=== PATIENT | male | born 1935 | race Caucasian/White ===

== ENCOUNTER 2017-05-04 17:27 | Emergency (ER) | payer OTHER ==
[~2017-05-04] VITALS: Ht 182.9 cm; Wt 103.1 kg
[2017-05-04 17:29] VITALS: TEMP 36.7; Ht 182.9 cm; Wt 103.1 kg
[2017-05-04] MEDS ORDERED: MoRPHine SULFATE 4 MG/ML 1 ML CARP\\VIAL IV STA (17:38)
[2017-05-04] MEDS ORDERED: ONDANSETRON INJ 2 MG/ML 2 ML VIAL IV STA (17:38)
[2017-05-04 17:51] LABS: BASO % 0.4 %; BASO ABS # 0.03 K/uL (0-0.2); COMPLETE YES; EOS % 3.4 %; HEMATOCRIT 43.4 % (42-52); IG% 0.7 %; LYMPH % 16.6 %; LYMPH ABS # 1.24 K/uL (1.2-3.4); MEAN CELL VOLUME 91.6 fL (80-100); MEAN CORPUSCULAR HEMOGLOBIN 30.4 pg (25-34); MEAN CORPUSCULAR HGB CONC 33.2 g/dl (32-36); MONO % 11.1 %; NEUT % 67.8 %; PLATELET COUNT 223 K/uL (130-400); RED BLOOD COUNT 4.74 M/uL (4.7-6.1); WHITE BLOOD COUNT 7.46 K/uL (4.8-10.8)
[2017-05-04 18:08] LABS: BUN/CREATININE RATIO 22.5 (10-20); CALCIUM 9.5 mg/dl (8.5-10.1); CREATININE 1.2 mg/dl (0.60-1.40); POTASSIUM 4.2 mmol/L (3.5-5.1)
[2017-05-04] MEDS ORDERED: ASPI81TA28 PO (18:10)
[2017-05-04] MEDS ORDERED: MULT-506 PO (18:10)
[2017-05-04] MEDS ORDERED: MISCCAP55 PO (18:10)
[2017-05-04] MEDS ORDERED: CYNI1000 INJ (18:10)
[2017-05-04] MEDS ORDERED: CARV12.52 PO (18:10)
[2017-05-04] MEDS ORDERED: CLX20 PO (18:10)
[2017-05-04] MEDS ORDERED: TERA5CAP PO (18:10)
[2017-05-04] MEDS ORDERED: GLC/500 PO (18:10)
[2017-05-04] MEDS ORDERED: CHOL1000 PO (18:10)
[2017-05-04] MEDS ORDERED: GLUC15002 PO (18:10)
[2017-05-04] MEDS ORDERED: CZR50 PO (18:10)
[2017-05-04] MEDS ORDERED: TRIATAB3 PO (18:10)
--- NOTE | 2017-05-04 18:30 | DIAGNOSTIC IMAGING REPORT ---
LEFT RIBS UNILATERAL WITH PA CHEST CLINICAL HISTORY: Left rib pain status post trauma COMPARISON STUDY: No previous studies for comparison. FINDINGS: The erect chest reveals no pneumothorax. There is no focal pulmonary consolidation. There is right hilar enlargement, possibly secondary to an enlarged pulmonary artery suggesting pulmonary hypertension There are fractures of the left fifth and sixth ribs. IMPRESSION: 1. Acute Left fifth and sixth posterior lateral rib fractures 2. No evidence of pneumothorax. 3. Right hilar enlargement. Electronically signed by: Diallo Dempsey M.D. 05/04/2017 6:28 PM Dictated Date/Time: 05/04/2017 6:26 PM
[2017-05-04] MEDS ORDERED: OXYC1TAB3 PO (18:50)
[2017-05-04 19:00] VITALS: BP 158/85; PULSE 67; O2SAT 97
[2017-05-04] MEDS ORDERED: OXYCODONE IR HOME PACK PO ONE (19:00)
--- NOTE | 2017-05-04 19:32 | EMERGENCY ROOM VISIT NOTE ---
History Report prepared by Jackson: Dylon Tellez Under the Supervision of: Dr. Geovani Robles M.D. First contact with patient: 17:33 Chief Complaint: RIB PAIN Stated Complaint: FELL, RIB PAIN History of Present Illness The patient is a 81 year old male who presents to the Emergency Room with complaints of constant left rib pain that started two hours ago. He rates his pain as a 7/10 in severity. The patient states that he fell two feet off of his porch and landed on his right arm. He reports that his left arm hit his left ribs causing him pain. The patient states that he fell because he tripped and there was no railing. He reports that since the incident he has been experiencing shortness of breath. The patient admits he takes medication for his blood pressure but denies any allergies. The patient denies hitting his head , hip injury, abdominal pain, a headache, LOC, and lightheadedness. He had no symptoms prior to the fall. Source of History: patient Onset: two hours ago Position: other (left rib) Symptom Intensity: 7/10 Quality: sharp Timing: constant Associated Symptoms: + SOB, No LOC, No headache, No abdominal pain Review of Systems See HPI for pertinent positives & negatives. A total of 10 systems reviewed and were otherwise negative. Past Medical & Surgical Medical Problems: (1) Diabetes (2) Heart disease (3) Hypertension Surgical Problems: (1) H/O hernia repair (2) H/O left knee surgery (3) History of back surgery Family History Cancer Diabetes mellitus Heart disease Hypertension Social History Smoking Status: Former Smoker Alcohol Use: none Drug Use: none Marital Status: Housing Status: lives with significant other Occupation Status: retired Current/Historical Medications Scheduled Aspirin (Aspirin Ec), 81 MG PO DAILY Carvedilol (Coreg), 12.5 MG PO DAILY Cholecalciferol (Vitamin D3), 1,000 INTER.UNIT PO DAILY Citalopram (Citalopram Hydrobromide), 20 MG PO DAILY Cyanocobalamin (Cyanocobalamin), 1 DOSE INJ MONTHLY Ycgtljejofu-Akkvyyohuro-Gak C- (Glucosamine 1500 Complex), 2 CAP PO DAILY Losartan Potassium (Losartan Potassium), 50 MG PO DAILY Metformin Hcl (Glucophage), 500 MG PO BID Misc Natural Products (Dandelion Root), 520 MG PO DAILY Multivitamin (Multivitamin), 1 TAB PO DAILY Terazosin (Hytrin), 5 MG PO DAILY Triamterene/Hctz (Triamterene/Hctz 37.5-25MG), 1 TAB PO DAILY Scheduled PRN Oxycodone Ir (Roxicodone Ir), 5 MG PO Q4H PRN for Pain Allergies Coded Allergies: No Known Allergies (Unverified , 05/04/17) Physical Exam Vital Signs Date Time Temp Pulse Resp B/P (MAP) Pulse Ox O2 Delivery O2 Flow Rate FiO2 05/04/17 19:00 67 18 158/85 97 05/04/17 17:43 71 05/04/17 17:29 36.7 77 18 188/97 97 Physical Exam Constitutional: Vital signs reviewed. Eyes: Pupils are equal round reactive to light. Conjunctiva are noninjected. ENT: Pharynx is clear without erythema or exudate. Mucous membranes are moist. Neck supple without meningeal signs. Respiratory: Clear to auscultation bilaterally. Breath sounds are equal bilaterally. Cardiovascular: Regular rate and rhythm. No rubs or gallops. GI: Soft, nondistended and nontender. Bowel sounds are present. Musculoskeletal: No midline tenderness to cervical spine. Left rib tenderness without crepitus or flail segment. No hip or upper or lower extremity tenderness. Integumentary: No cyanosis. Neurological: The patient is awake and alert. No focal deficits. Psychiatric: Normal affect. Medical Decision & Procedures ER Provider Diagnostic Interpretation: X-ray results as stated below per interpretation by me and the radiologist: LEFT RIBS UNILATERAL WITH PA CHEST CLINICAL HISTORY: Left rib pain status post trauma COMPARISON STUDY: No previous studies for comparison. FINDINGS: The erect chest reveals no pneumothorax. There is no focal pulmonary consolidation. There is right hilar enlargement, possibly secondary to an enlarged pulmonary artery suggesting pulmonary hypertension There are fractures of the left fifth and sixth ribs. IMPRESSION: 1. Acute Left fifth and sixth posterior lateral rib fractures 2. No evidence of pneumothorax. 3. Right hilar enlargement. Electronically signed by: Diallo Dempsey M.D. 05/04/2017 6:28 PM Dictated Date/Time: 05/04/2017 6:26 PM Laboratory Results 05/04/17 17:41 Red Blood Count 4.74, Mean Corpuscular Volume 91.6, Mean Corpuscular Hemoglobin 30.4, Mean Corpuscular Hemoglobin Concent 33.2, Mean Platelet Volume 10.0, Neutrophils (%) (Auto) 67.8, Lymphocytes (%) (Auto) 16.6, Monocytes (%) (Auto) 11.1, Eosinophils (%) (Auto) 3.4, Basophils (%) (Auto) 0.4, Neutrophils # (Auto ) 5.06, Lymphocytes # (Auto) 1.24, Monocytes # (Auto) 0.83, Eosinophils # (Auto ) 0.25, Basophils # (Auto) 0.03 05/04/17 17:41 Test 05/04/17 17:41 White Blood Count 7.46 K/uL (4.8-10.8) Red Blood Count 4.74 M/uL (4.7-6.1) Hemoglobin 14.4 g/dL (14.0-18.0) Hematocrit 43.4 % (42-52) Mean Corpuscular Volume 91.6 fL (80-100) Mean Corpuscular Hemoglobin 30.4 pg (25-34) Mean Corpuscular Hemoglobin Concent 33.2 g/dl (32-36) Platelet Count 223 K/uL (130-400) Mean Platelet Volume 10.0 fL (7.4-10.4) Neutrophils (%) (Auto) 67.8 % Lymphocytes (%) (Auto) 16.6 % Monocytes (%) (Auto) 11.1 % Eosinophils (%) (Auto) 3.4 % Basophils (%) (Auto) 0.4 % Neutrophils # (Auto) 5.06 K/uL (1.4-6.5) Lymphocytes # (Auto) 1.24 K/uL (1.2-3.4) Monocytes # (Auto) 0.83 K/uL (0.11-0.59) Eosinophils # (Auto) 0.25 K/uL (0-0.5) Basophils # (Auto) 0.03 K/uL (0-0.2) RDW Standard Deviation 45.8 fL (36.4-46.3) RDW Coefficient of Variation 13.8 % (11.5-14.5) Immature Granulocyte % (Auto) 0.7 % Immature Granulocyte # (Auto) 0.05 K/uL (0.00-0.02) Anion Gap 9.0 mmol/L (3-11) Est Creatinine Clear Calc Drug Dose 60.0 ml/min Estimated GFR () 65.3 Estimated GFR (Non- 56.4 BUN/Creatinine Ratio 22.5 (10-20) Calcium Level 9.5 mg/dl (8.5-10.1) Laboratory results as reviewed by me. Medications Administered Medications (Trade) Dose Ordered Sig/Kristen Route Start Time Stop Time Status Last Admin Dose Admin Morphine Sulfate (MoRPHine SULFATE INJ) 4 mg NOW STAT IV 05/04/17 17:38 05/04/17 17:40 DC 05/04/17 17:52 4 MG Ondansetron HCl (Zofran Inj) 4 mg NOW STAT IV 05/04/17 17:38 05/04/17 17:40 DC 05/04/17 17:52 4 MG Oxycodone HCl (Roxicodone Immediate Rel 5MG Home Pack) 1 homepack UD ONCE PO 05/04/17 19:00 05/04/17 19:01 DC 05/04/17 18:52 1 HOMEPACK ED Course 1733: The patient was evaluated in room B09. A complete history and physical exam was performed. 1738: Ordered Zofran Injection 4 mg IV, Morphine Sulfate 4 mg IV. 1843: I reevaluated the patient and discussed his results. I told him bout the precautions regarding his pain, pain medication, and driving restrictions. The patient was discharged home. 1899: Ordered Oxycodone HCL 1 homepack PO. Medical Decision This is an 81-year-old male who presents with left-sided rib pain. Differential diagnosis includes contusion, rib fracture, pneumothorax, flail segment. I did perform a limited focused review of portions of the patient's old chart on the electronic medical record. The patient has had no recent pertinent visits to this hospital. I did evaluate the patient as noted above. The patient presents after a mechanical fall and hurting his left ribs. He denies any other injury. He denies any head or neck injury or hip injury. IV access was established. I did treat the patient with IV morphine and Zofran. I did order and personally review the patient's rib and chest x-rays as described above. He does have factors to the fifth and sixth rib posteriorly. No pneumothorax. I did order and review the patient's blood work as noted in the electronic medical record. I did discuss the test results with the patient. He is feeling better. I did discuss pain medications with him. He states he is driving to [place] on Saturday. I did recommend his drive because if he has an acute episode of pain he could cause a motor vehicle accident. I did discharge the patient with a prescription for OxyIR. [place] Drug Monitoring Program Search Results: patient reviewed within database, no issues identified Medication Reconcilliation Current Medication List: was personally reviewed by me Blood Pressure Screening Patient's blood pressure: Elevated blood pressure Impression Primary Impression: Left rib fracture Scribe Attestation The scribe's documentation has been prepared under my direct and personally reviewed by me in its entirety. I confirm that the note above accurately reflects all work, treatment, procedures, and medical decision making performed by me. Departure Information Dispostion Home / Self-Care Prescriptions Oxycodone Ir (Roxicodone Ir) 5 Mg Tab 5 MG PO Q4H Y for Pain, #20 TAB Prov: Geovani Robles M.D. 05/04/17 Forms HOME CARE DOCUMENTATION FORM, IMPORTANT VISIT INFORMATION, WORK / SCHOOL INSTRUCTIONS Patient Instructions ED Fx Rib, My [facility] Additional Instructions You have been examined and treated today on an emergency basis only. This is not a substitute for, or an effort to provide, complete comprehensive medical care. It is impossible to recognize and treat all injuries or illnesses in a single emergency department visit. It is therefore important that you follow up closely with your physician. Call as soon as possible for an appointment. Return for worsening symptoms or if you develop fever, vomiting, sudden shortness of breath or any other concerning symptoms. Problem Qualifiers Primary Impression: Left rib fracture Encounter type: initial encounter Rib fracture type: multiple ribs Fracture type: closed Qualified Codes: S22.42XA - Multiple fractures of ribs , left side, initial encounter for closed fracture
== END 2017-05-04 19:01 | disposition home or self-care (01) ==
LOC: C.EDB 17:27
DX: S22.42XA Multiple fractures of ribs, left side, initial encounter for closed fracture (principal); W17.89XA Other fall from one level to another, initial encounter; E11.9 Type 2 diabetes mellitus without complications; I10 Essential (primary) hypertension; Z80.9 Family history of malignant neoplasm, unspecified; Z83.3 Family history of diabetes mellitus; Z82.49 Family history of ischemic heart disease and other diseases of the circulatory system; Z87.891 Personal history of nicotine dependence; Z79.82 Long term (current) use of aspirin; Z79.899 Other long term (current) drug therapy

== ENCOUNTER 2019-04-01 12:33 | Observation (INO) ==
[2019-04-01 13:05] LABS: Basophils # (auto) 0.03 K/uL (0-0.2); Basophils % (auto) 0.5 %; Eosinophils % (auto) 3.1 %; Hematocrit (blood only) 41.2 % (42-52); Hemoglobin 14.3 g/dL (14.0-18.0); Immature Granulocytes # (auto) 0.09 K/uL (0.00-0.02); Immature Granulocytes % (auto) 1.4 %; Lymphocytes # (auto) 1.24 K/uL (1.2-3.4); Lymphocytes % (auto) 19.3 %; Mean Corpuscular Hgb Conc 34.7 g/dL (32-36); Mean Corpuscular Volume 91.4 fL (80-100); Mean Platelet Volume 10.1 fL (7.4-10.4); Monocytes # (auto) 0.66 K/uL (0.11-0.59); Monocytes % (auto) 10.3 %; Neutrophils # (auto) 4.21 K/uL (1.4-6.5); Neutrophils % (auto) 65.4 %; Platelet Count 242 K/uL (130-400); RDW Coefficient of Variation 14.7 % (11.5-14.5); RDW Standard Deviation 48.9 fL (36.4-46.3); Red Blood Count 4.51 M/uL (4.7-6.1); White Blood Count 6.43 K/uL (4.8-10.8)
[2019-04-01] MEDS: NITROGLYCERIN SL 0.4 MG/TAB TAB SL PRN ×2 (13:09→13:38)
[2019-04-01] MEDS ORDERED: ONDANSETRON INJ 2 MG/ML 2 ML VIAL IV STA (13:14)
[2019-04-01] MEDS ORDERED: SODIUM CHLORIDE 0.9% 1000ML 1,000 ML IV SCH (13:15)
[2019-04-01 13:20] LABS: Partial Thromboplastin Ratio 0.9; Partial Thromboplastin Time 23.4 Seconds (21.0-31.0); Prothrombin Time 10.4 Seconds (9.0-12.0)
[2019-04-01 13:21] LABS: Alanine Aminotransferase 30 U/L (12-78); Aspartate Aminotransferase 25 U/L (15-37); BUN Creatinine Ratio 20.9 (10-20); Bilirubin Direct 0.2 mg/dl (0-0.2); Blood Urea Nitrogen 35 mg/dl (7-18); Carbon Dioxide 26 mmol/L (21-32); Chloride 104 mmol/L (98-107); Creatinine Clr Calc Pharmacy 40.2 ml/min; Est GFR (African American) 42.6; Est GFR (Non-African American) 36.7; Glucose 126 mg/dl (70-99); Potassium 3.9 mmol/L (3.5-5.1); Sodium 139 mmol/L (136-145)
[2019-04-01 13:26] LABS: Albumin Globulin Ratio 1.1 (0.9-2); Alkaline Phosphatase 53 U/L (45-117); Bilirubin,Total 0.7 mg/dl (0.2-1); Globulin 3.7 gm/dl (2.5-4.0); Total Protein 7.7 gm/dl (6.4-8.2); Troponin I < 0.015 ng/ml (0-0.045)
--- NOTE | 2019-04-01 13:38 | XRay Report ---
XR chest 1V portable CLINICAL HISTORY: Atypical chest pain COMPARISON STUDY: 05/04/2017 FINDINGS: The heart is normal in size. There is no failure. There is no pneumothorax. The patient is hyperinflated. There is enlargement of the pulmonary arteries consistent with pulmonary arterial hype rtension. There is basilar interstitial thickening.[There are old healed left-sided rib fractures IMPRESSION: 1. Emphysema 2. Pulmonary arterial hypertension 3. Basilar interstitial thickening 4. No evidence of lobar consolidation Electronically signed by: Diallo Dempsey M.D. 04/01/2019 1:37 PM
[2019-04-01] MEDS ORDERED: PROMETHAZINE HCL 12.5 MG in SODIUM CHLORIDE 0.9% 50 ML IV PRN (14:39)
--- NOTE | 2019-04-01 14:47 | History & Physical Report ---
Date of Service April 01, 2019 Assessment & Plan (1) Chest pain: Complaint history of nonexertional lower central/epigastric pain Minimal shortness of breath History of cardiac disease in the chart but no history of stenting and/or CABG Initial EKG and troponin are negative Will admit the patient to telemetry unit for observation Serial cardiac enzymes to rule out possibility of ACS Echocardiogram Cardiology consult if symptoms persist The pain could be secondary to esophageal/reflux disease 5 years back he has had similar pain and was told by the physician that he might have pain secondary to esophageal issues He has not been taking any PPI and/or H2 alcides Will start tonics 40 mg a day (2) WILSON (acute kidney injury): Noted to have dehydration with increased creatinine and increased BUN Will hold JAME inhibitor for now and also diuretics Cautious amount of IV fluid And monitor kidney function (3) Diabetes: Hold metformin SSI Check hemoglobin A1c (4) Hypertension: Continue amlodipine and Coreg Holding lisinopril and diuretics for now (5) Pleurisy: History of pleurisy Gastric pain is going to the back, not in between shoulder blades Localized tenderness mostly left lower thoracic area If possible we will get CT scan with contrast to rule out any aneurysm History of Present Illness Chief Complaint: Chest/epigastric pain since about 12 PM Primary Care Provider: Silviano Vigil He is an 83-year-old male with significant past medical history of hypertension, diabetes and heart disease without any history of heart attack and/or cardiac stent or bypass surgery in the past apparently has been complaining of sharp epigastric/lower central chest pain since around noon today. He has been visiting from [place] and this morning he has had a good breakfast and at lunch he ate something more started to have severe stabbing kind of pain in the epigastrium that went to the back and also central lower chest. It is associated with some shortness of breath. He has had an attack of acute pleurisy recently and received a course of prednisone from his primary care physician in [place]. He thinks WBC has not been cleared yet. His pain has been going on for more than 2 hours with a.m. minimal associated symptoms and the pain is to some extent relieved by sublingual nitro. He has been on most free of pain in the emergency room and noted to be hemodynamically stable. He had similar pain about 5 years back at that time he underwent a cardiac cath that was unremarkable and he was told that the pain is from esophagitis. Allergies Allergy/AdvReac Type Severity Reaction Status Date / Time No Known Allergies Allergy Unverified 04/01/19 14:13 Home Medications Home Medications Medication Instructions Recorded Confirmed Type Dandelion Root 1,260 mg PO DAILY 04/01/19 04/01/19 History amlodipine 5 mg PO DAILY 04/01/19 04/01/19 History aspirin [Aspirin Low Dose] 81 mg PO DAILY 04/01/19 04/01/19 History carvedilol 6.25 mg PO UNKNOWN 04/01/19 04/01/19 History citalopram 20 mg PO DAILY 04/01/19 04/01/19 History cyanocobalamin (vitamin B-12) 0 mcg IM MONTHLY 04/01/19 04/01/19 History losartan 50 mg PO BID 04/01/19 04/01/19 History metformin 500 mg PO BID 04/01/19 04/01/19 History multivitamin 1 tab PO DAILY 04/01/19 04/01/19 History terazosin 5 mg PO DAILY 04/01/19 04/01/19 History triamterene-hydrochlorothiazid 1 tab PO DAILY 04/01/19 04/01/19 History Past Med/Surg History Medical History Hypertension Diabetes Heart disease Family History Other Cancer Diabetes Heart disease Hypertension Social History marital status: Current Living Situation: Spouse current occupational status: retired Feels Safe at Home: Yes Smoking Status: Never smoker Review of Systems Review of Systems: All systems reviewed & are unremarkable except as noted in HPI & below Physical Exam Physical Exam: No apparent distress at rest Constitutional: well developed and well nourished; no acute distress and not ill appearing Eyes: PERRL, conjunctivae normal, anicteric sclerae ENMT: external ear and nose normal, oropharynx normal Neck: trachea midline, no thyromegaly Respiratory: Complaint to have pleuritic chest pain. And the pain seems to be left lower thoracic area at the back Cardiovascular: Rate/Rhythm: regular rate and regular rhythm Heart Sounds: no murmur Gastrointestinal (Abdomen): Inspection/Auscultation: abdomen normal to inspection and normal bowel sounds Musculoskeletal: No acute arthritis Neurologic: Alert awake and oriented x3, Lymphatic: no cervical or axillary lymphadenopathy Results & Data Vital Signs (Past 12 Hours) Vital Signs Temp Pulse Pulse Resp BP BP Pulse Ox 04/01/19 13:53 68 24 124/75 68 L 04/01/19 13:35 66 20 130/78 98 04/01/19 13:14 72 18 99/53 L 94 04/01/19 13:08 72 20 145/85 H 98 04/01/19 12:37 36.5 C 73 16 149/90 H 99 Laboratory Results Short CBC 04/01/19 Range/Units 12:53 WBC 6.43 (4.8-10.8) K/uL Hgb 14.3 (14.0-18.0) g/dL Hct 41.2 L (42-52) % Plt Count 242 (130-400) K/uL BMP 04/01/19 12:53 Sodium 139 Potassium 3.9 Chloride 104 Carbon Dioxide 26 BUN 35 H Creatinine 1.69 H Glucose 126 H Calcium 9.0 Cardiac Enzymes 04/01/19 Range/Units 12:53 Troponin I < 0.015 (0-0.045) ng/ml Liver Function 04/01/19 Range/Units 12:53 Total Bilirubin 0.7 (0.2-1) mg/dl Direct Bilirubin 0.2 (0-0.2) mg/dl AST 25 (15-37) U/L ALT 30 (12-78) U/L Alkaline Phosphatase 53 (45-117) U/L Albumin 4.0 (3.4-5.0) gm/dl Medications Administered Current Inpatient Medications Heparin Sodium (Porcine) (Heparin Sodium (Porcine)) 5,000 units SQ Q12 CORDE[facility] Stop: 05/01/19 20:59 Sodium Chloride (Nss 1000ml) 1,000 mls @ 125 mls/hr IV .Q8H CORDE[facility] Stop: 05/01/19 13:14 Last Admin: 04/01/19 13:09 Dose: 125 mls/hr Documented by: Sodium Chloride (Nss 1000ml) 1,000 mls @ 125 mls/hr IV .Q8H CORDE[facility] Stop: 04/02/19 06:44 Promethazine HCl 12.5 mg/ (Sodium Chloride) 50.5 mls @ 202 mls/hr IV Q6H PRN PRN Reason: Nausea And Vomiting Stop: 05/01/19 14:38 Insulin Aspart (Novolog Flexpen) 0 units SC ACHS CORDELL Stop: 05/01/19 16:29 Nitroglycerin (Nitrostat) 0.4 mg SL PRN PRN PRN Reason: Chest Pain Stop: 05/01/19 13:02 Last Admin: 04/01/19 13:38 Dose: 0.4 mg Documented by: Pantoprazole Sodium (Protonix) 40 mg PO QAM [facility] Stop: 05/01/19 14:44 Code Status & VTE Plan VTE Prophylaxis Plan VTE Prophylaxis will be ordered: Yes (1) Chest pain Chest pain type: unspecified Qualified Code(s): R07.9 - Chest pain, unspecified
[2019-04-01] MEDS: SODIUM CHLORIDE 0.9% 1000ML 1,000 ML IV SCH (18:26)
[2019-04-01] MEDS: PANTOprazole 40 MG TAB PO SCH (18:28)
[2019-04-01] MEDS: AMLODIPINE BESYLATE 5 MG TAB PO SCH (18:28)
--- NOTE | 2019-04-01 18:39 | Emergency Department Note ---
Entered by Em Ron acting as a scribe for History of Present Illness General Chief complaint: Chest Pain Stated complaint: CHEST PAIN - THROWING UP Time Seen by Provider: 04/01/19 13:00 Source: patient History of Present Illness Onset (ago): day(s) (today) Location: chest Radiation: back Severity: similar to prior episodes (from esophagus) Pain Consistency: + other (episode) Maximum Pain Intensity: 10 Relieved By: + medication (Nitroglycerin) Associated symptoms: + shortness of breath The patient is an 83 year old male who presents to the Emergency Room with complaints of an episode of chest pain starting today. The patient states that his chest pain radiates into his back. He reports that he is short of breath from the pain as well. He states that he had an episode like this 3-4 years ago and it was his esophagus. He reports that the only thing that helped was 3 Nitroglycerin. He states that he is from [place] and travel up here 2 weeks ago for the [employer]. Home Medications Home Medications Medication Instructions Recorded Confirmed Type Dandelion Root 1,260 mg PO DAILY 04/01/19 04/01/19 History amlodipine 5 mg PO DAILY 04/01/19 04/01/19 History aspirin [Aspirin Low Dose] 81 mg PO DAILY 04/01/19 04/01/19 History carvedilol 6.25 mg PO UNKNOWN 04/01/19 04/01/19 History citalopram 20 mg PO DAILY 04/01/19 04/01/19 History cyanocobalamin (vitamin B-12) 0 mcg IM MONTHLY 04/01/19 04/01/19 History losartan 50 mg PO BID 04/01/19 04/01/19 History metformin 500 mg PO BID 04/01/19 04/01/19 History multivitamin 1 tab PO DAILY 04/01/19 04/01/19 History terazosin 5 mg PO DAILY 04/01/19 04/01/19 History triamterene-hydrochlorothiazid 1 tab PO DAILY 04/01/19 04/01/19 History Allergies Allergy/AdvReac Type Severity Reaction Status Date / Time No Known Allergies Allergy Unverified 04/01/19 14:13 Past Med/Surg History Medical History Hypertension Diabetes Heart disease Family History Other Cancer Diabetes Heart disease Hypertension Social History Preferred Language: Moldovan Communication Ability: Effective Meat Soaker Required: No Beliefs That Will Affect Care: None marital status: Current Living Situation: Spouse Current Living Situation Comment: lives in [place], here for radha meza current occupational status: retired Other Information That Helps Us Care for You: No Feels Safe at Home: Yes Safety Concerns: Feels Safe At This Time Smoking Status: Former smoker Cigarettes Per Day: quit 30 years ago ; Hx Alcohol Use: No Hx Substance Use: No Review of Systems See HPI for pertinent positives & negatives. and A total of 10 systems reviewed and were otherwise negative Physical Exam Vital Signs Vital Signs - 24 hr 04/01/19 12:37 04/01/19 13:03 04/01/19 13:08 Temperature 36.5 C Temperature Source Oral Sepsis Recent Fever Within 48 Hours No Sepsis New/Unexplained Change in Mental Status No Sepsis Action Taken by Nursing No Action Required Pulse Rate 73 Pulse Rate [Right Finger] 72 Respiratory Rate 16 20 Respiratory Effort / Characteristics Non-Labored Spontaneous Respiratory Depth Normal Blood Pressure 149/90 H Blood Pressure [Right Arm] 145/85 H Blood Pressure Mean 109 Blood Pressure Mean [Right Arm] 105 Pulse Oximetry 99 98 Oxygen Delivery Method Room Air Room Air 04/01/19 13:14 04/01/19 13:35 04/01/19 13:53 Temperature Temperature Source Sepsis Recent Fever Within 48 Hours Sepsis New/Unexplained Change in Mental Status Sepsis Action Taken by Nursing Pulse Rate Pulse Rate [Right Finger] 72 66 68 Respiratory Rate 18 20 24 Respiratory Effort / Characteristics Non-Labored Spontaneous Non-Labored Non-Labored Respiratory Depth Normal Normal Normal Blood Pressure Blood Pressure [Right Arm] 99/53 L 130/78 124/75 Blood Pressure Mean Blood Pressure Mean [Right Arm] 68 95 91 Pulse Oximetry 94 98 68 L Oxygen Delivery Method Room Air Room Air Room Air GENERAL: He is oriented to person, place, and time. He appears well-developed and well-nourished. He does not appear distressed. HENT: Exam performed. - Head: Normocephalic and atraumatic. - Right Ear: External ear normal. No mastoid tenderness. - Left Ear: External ear normal. No mastoid tenderness. - Mouth/Throat: The oropharynx is clear and moist. No trismus in the jaw. No dental abscesses or uvula swelling. No oropharyngeal exudate or tonsillar abscesses. EYES: Conjunctivae and EOM are normal. Pupils are equal, round, and reactive to light. Right eye exhibits no discharge. Left eye exhibits no discharge. No scleral icterus. NECK: Normal range of motion. Neck supple. No JVD present. No spinous process tenderness present. No carotid bruit present. No rigidity. No tracheal deviation and normal range of motion present. No Brudzinski's sign and no Kernig's sign noted. CV: Normal rate, regular rhythm, normal heart sounds and intact distal pulses. There is no peripheral edema. Palpable radial pulses bue. PULM/CHEST: Effort normal and breath sounds normal. No respiratory distress. No stridor. He has no wheezes. He has no rales. - Chest Wall: He exhibits no tenderness. ABD: The abdomen is soft. Bowel sounds are normal. He has no distension. No mass is present. There is no tenderness. There is no rebound, no guarding, no Brewer's sign and no tenderness at McBurney's point. Rovsig negative. MUSC/SKEL: Normal range of motion. There is no peripheral edema, tenderness or deformity. LYMPH: No cervical adenopathy. NEURO: He is alert and oriented to person, place, and time. He has normal stren gth. No cranial nerve deficit or sensory deficit. Coordination and gait normal. GCS eye subscore is 4. GCS verbal subscore is 5. GCS motor subscore is 6. Cerebellar tests wnl. SKIN: Skin is warm and dry. He is not diaphoretic. PSYCH: He has a normal mood and affect. Behavior is normal. Judgment and thought content normal. Course 1301: Past medical records reviewed. The patient was evaluated in room B12B. A complete history and physical exam was performed. 1351: Vital signs are stable. Labs are within normal limits. Creatinine is elevated at 1.69. The patient is not tachycardic or hypoxic. The patient's symptoms got better with Zofran and sublingual Nitroglycerin. Although he has risk factor for a PE, such as recent travel, he has normal vital signs and it is thought that a PE would be less likely given he is not tachycardic or hypoxic. He will be admitted to the hospitalist service. I discussed the patient's case with JOHAN Lehman Hospitalist who accepted the patient for further management under Dr. Thakkar. The patient will be evaluated for a further work up of a PE with a VQ scan. Consultations Consultation #1: I discussed the patient's case with JOHAN Lehman Hospitalist who accepted the patient for further management under Dr. Thakkar. Time: 13:51 Administered Medications Amlodipine Besylate (Norvasc) 5 mg PO DAILY CORDELL Stop: 05/01/19 17:08 Last Admin: 04/01/19 18:28 Dose: 5 mg Documented by: [id number] Sodium Chloride (Nss 1000ml) 1,000 mls @ 125 mls/hr IV .Q8H CORDELL Stop: 04/02/19 06:44 Last Admin: 04/01/19 18:26 Dose: 125 mls/hr Documented by: [id number] Nitroglycerin (Nitrostat) 0.4 mg SL PRN PRN PRN Reason: Chest Pain Stop: 05/01/19 13:02 Last Admin: 04/01/19 13:38 Dose: 0.4 mg Documented by: [id number] Admin: 04/01/19 13:09 Dose: 0.4 mg Documented by: [id number] Pantoprazole Sodium (Protonix) 40 mg PO QAM CORDELL Stop: 04/05/19 14:44 Last Admin: 04/01/19 18:28 Dose: 40 mg Documented by: [id number] Discontinued Medications Sodium Chloride (Nss 1000ml) 1,000 mls @ 125 mls/hr IV .Q8H CORDELL Stop: 05/01/19 13:14 Last Infusion: 04/01/19 18:01 Dose: 0 mls/hr Documented by: [id number] Admin: 04/01/19 13:09 Dose: 125 mls/hr Documented by: [id number] Ondansetron HCl (Zofran) 4 mg IV NOW STA Stop: 04/01/19 13:15 Last Admin: 04/01/19 13:18 Dose: 4 mg Documented by: [id number] Medical Decision Making Medical Records Attestation: I reviewed the patient's medical records. Home Medications Current Medication List: was personally reviewed by me Laboratory Data Attestation: I reviewed the patient's lab results. Result diagrams: 04/01/19 12:53 04/01/19 12:53 Lab Results 04/01/19 04/01/19 04/01/19 Range/Units 12:53 12:53 12:53 WBC 6.43 (4.8-10.8) K/uL RBC 4.51 L (4.7-6.1) M/uL Hgb 14.3 (14.0-18.0) g/dL Hct 41.2 L (42-52) % MCV 91.4 (80-100) fL MCH 31.7 (25-34) pg MCHC 34.7 (32-36) g/dL RDW Std Deviation 48.9 H (36.4-46.3) fL RDW Coeff of Oly 14.7 H (11.5-14.5) % Plt Count 242 (130-400) K/uL MPV 10.1 (7.4-10.4) fL Immature Gran % (Auto) 1.4 % Neut % (Auto) 65.4 % Lymph % (Auto) 19.3 % [place] % (Auto) 10.3 % Eos % (Auto) 3.1 % Baso % (Auto) 0.5 % Immature Gran # (Auto) 0.09 H (0.00-0.02) K/uL Neut # (Auto) 4.21 (1.4-6.5) K/uL Lymph # (Auto) 1.24 (1.2-3.4) K/uL [place] # (Auto) 0.66 H (0.11-0.59) K/uL Eos # (Auto) 0.20 (0-0.5) K/uL Baso # (Auto) 0.03 (0-0.2) K/uL PT 10.4 (9.0-12.0) Seconds INR 1.0 (0.9-1.1) APTT 23.4 (21.0-31.0) Seconds PTT Ratio 0.9 Sodium 139 (136-145) mmol/L Potassium 3.9 (3.5-5.1) mmol/L Chloride 104 (98-107) mmol/L Carbon Dioxide 26 (21-32) mmol/L Anion Gap 9.0 (3-11) BUN 35 H (7-18) mg/dl Creatinine 1.69 H (0.6-1.4) mg/dl Est Cr Clr Drug Dosing 40.2 ml/min Est GFR ( Amer) 42.6 Est GFR (Non-Af Amer) 36.7 BUN/Creatinine Ratio 20.9 H (10-20) Glucose 126 H (70-99) mg/dl POC Glucose (70-99) Calcium 9.0 (8.5-10.1) mg/dl Total Bilirubin 0.7 (0.2-1) mg/dl Direct Bilirubin 0.2 (0-0.2) mg/dl AST 25 (15-37) U/L ALT 30 (12-78) U/L Alkaline Phosphatase 53 (45-117) U/L Troponin I < 0.015 (0-0.045) ng/ml Total Protein 7.7 (6.4-8.2) gm/dl Albumin 4.0 (3.4-5.0) gm/dl Globulin 3.7 (2.5-4.0) gm/dl Albumin/Globulin Ratio 1.1 (0.9-2) Lipase 158 (73-393) U/L 04/01/19 Range/Units 13:11 WBC (4.8-10.8) K/uL RBC (4.7-6.1) M/uL Hgb (14.0-18.0) g/dL Hct (42-52) % MCV (80-100) fL MCH (25-34) pg MCHC (32-36) g/dL RDW Std Deviation (36.4-46.3) fL RDW Coeff of Oly (11.5-14.5) % Plt Count (130-400) K/uL MPV (7.4-10.4) fL Immature Gran % (Auto) % Neut % (Auto) % Lymph % (Auto) % [place] % (Auto) % Eos % (Auto) % Baso % (Auto) % Immature Gran # (Auto) (0.00-0.02) K/uL Neut # (Auto) (1.4-6.5) K/uL Lymph # (Auto) (1.2-3.4) K/uL [place] # (Auto) (0.11-0.59) K/uL Eos # (Auto) (0-0.5) K/uL Baso # (Auto) (0-0.2) K/uL PT (9.0-12.0) Seconds INR (0.9-1.1) APTT (21.0-31.0) Seconds PTT Ratio Sodium (136-145) mmol/L Potassium (3.5-5.1) mmol/L Chloride (98-107) mmol/L Carbon Dioxide (21-32) mmol/L Anion Gap (3-11) BUN (7-18) mg/dl Creatinine (0.6-1.4) mg/dl Est Cr Clr Drug Dosing ml/min Est GFR ( Amer) Est GFR (Non-Af Amer) BUN/Creatinine Ratio (10-20) Glucose (70-99) mg/dl POC Glucose 134 H (70-99) Calcium (8.5-10.1) mg/dl Total Bilirubin (0.2-1) mg/dl Direct Bilirubin (0-0.2) mg/dl AST (15-37) U/L ALT (12-78) U/L Alkaline Phosphatase (45-117) U/L Troponin I (0-0.045) ng/ml Total Protein (6.4-8.2) gm/dl Albumin (3.4-5.0) gm/dl Globulin (2.5-4.0) gm/dl Albumin/Globulin Ratio (0.9-2) Lipase (73-393) U/L Imaging Data Radiologist's Impression: Radiology results as stated below per my review and the radiologist's interpretation: XR chest 1V portable CLINICAL HISTORY: Atypical chest pain COMPARISON STUDY: 05/04/2017 FINDINGS: The heart is normal in size. There is no failure. There is no pneumothorax. The patient is hyperinflated. There is enlargement of the pulmonary arteries consistent with pulmonary arterial hypertension. There is basilar interstitial thickening.[There are old healed left-sided rib fractures IMPRESSION: 1. Emphysema 2. Pulmonary arterial hypertension 3. Basilar interstitial thickening 4. No evidence of lobar consolidation Electronically signed by: Diallo Dempsey M.D. 04/01/2019 1:37 PM ECG Data Attestation: I personally reviewed and interpreted this ECG as follows: Indication: chest pain Rate (beats per minute): 70 Rhythm: sinus rhythm Findings: + other ([place], QRS, and QT-c intervals are within normal limits); no ST depression and no ST elevation Blood Pressure Blood Pressure Findings: Normal blood pressure Blood Pressure Disposition: did not require urgent referral MDM Narrative Vital signs are stable. Labs are within normal limits. Creatinine is elevated at 1.69. The patient is not tachycardic or hypoxic. The patient's symptoms got better with Zofran and sublingual Nitroglycerin. Although he has risk factor for a PE, such as recent travel, he has normal vital signs and it is thought that a PE would be less likely given he is not tachycardic or hypoxic. He will be admitted to the hospitalist service. [facility] the [facility] the patient for further management under Dr. Thakkar. The patient will be evaluated for a further work up of a PE with a VQ scan. Impression & Plan Chest pain Discharge Plan Visit Data *Final* Discharge Date/Time: 04/01/19 16:32 Chief Complaint: Chest Pain Stated Complaint: CHEST PAIN - THROWING UP ED Provider: Ramesh Kearns Discharge Problem: Chest pain Patient Disposition: Admitted As Inpatient Discharge Instructions Interventions: ED Discharge Assessment Last Done: 04/01/19 16:32 Discharge Problem: Chest pain Qualifiers: Chest pain type: unspecified Qualified Code(s): R07.9 - Chest pain, unspecified The scribe's documentation has been prepared under my direction and personally reviewed by me in its entirety. I confirm that the note above accurately reflects all work, treatment, procedures, and medical decision making performed by me.
[2019-04-01] MEDS ORDERED: GLUCAGON FOR INJ 1 MG VIAL IM PRN (18:45)
[2019-04-01] MEDS ORDERED: CARBOHYDRATES FOR HYPOGLYCEMIA PO PRN (18:45)
[2019-04-01] MEDS ORDERED: GLUCOSE 10 TABS/TUBE PO PRN (18:45)
[2019-04-01] MEDS ORDERED: DEXTROSE 50% 50 ML SYRINGE IV PRN (18:45)
[2019-04-01] MEDS ORDERED: GLUCOSE 40% GEL 15 GM TUBE PO PRN (18:45)
[2019-04-01] MEDS: INSULIN ASPART 100 UNITS/ML 3 ML PEN SC SCH ×2 (19:24→20:27)
[2019-04-01 20:12] LABS: BUN Creatinine Ratio 22.2 (10-20); Blood Urea Nitrogen 34 mg/dl (7-18); Calcium 8.9 mg/dl (8.5-10.1); Carbon Dioxide 24 mmol/L (21-32); Chloride 107 mmol/L (98-107); Creatinine Clr Calc Pharmacy 44.1 ml/min; Est GFR (African American) 47.6; Est GFR (Non-African American) 41.1; Glucose 133 mg/dl (70-99); Potassium 3.8 mmol/L (3.5-5.1); Sodium 141 mmol/L (136-145)
[2019-04-01 20:17] LABS: Troponin I < 0.015 ng/ml (0-0.045)
[2019-04-01] MEDS: CARVEDILOL 6.25 MG TAB PO SCH (20:25)
[2019-04-01] MEDS: HEPARIN SOD 5,000 UNIT/0.5 ML VIAL SQ SCH (20:26)
[2019-04-02 01:09] LABS: Basophils # (auto) 0.02 K/uL (0-0.2); Basophils % (auto) 0.3 %; Eosinophils # (auto) 0.15 K/uL (0-0.5); Eosinophils % (auto) 2.3 %; Hematocrit (blood only) 36.7 % (42-52); Hemoglobin 12.9 g/dL (14.0-18.0); Immature Granulocytes # (auto) 0.05 K/uL (0.00-0.02); Immature Granulocytes % (auto) 0.8 %; Lymphocytes # (auto) 1.54 K/uL (1.2-3.4); Lymphocytes % (auto) 23.7 %; Mean Corpuscular Hgb Conc 35.1 g/dL (32-36); Mean Corpuscular Volume 90.2 fL (80-100); Mean Platelet Volume 9.5 fL (7.4-10.4); Monocytes # (auto) 0.67 K/uL (0.11-0.59); Monocytes % (auto) 10.3 %; Neutrophils # (auto) 4.08 K/uL (1.4-6.5); Neutrophils % (auto) 62.6 %; Platelet Count 201 K/uL (130-400); RDW Coefficient of Variation 14.5 % (11.5-14.5); RDW Standard Deviation 47.7 fL (36.4-46.3); Red Blood Count 4.07 M/uL (4.7-6.1); White Blood Count 6.51 K/uL (4.8-10.8)
[2019-04-02 01:28] LABS: BUN Creatinine Ratio 19.9 (10-20); Blood Urea Nitrogen 31 mg/dl (7-18); Calcium 8.1 mg/dl (8.5-10.1); Carbon Dioxide 26 mmol/L (21-32); Chloride 107 mmol/L (98-107); Creatinine Clr Calc Pharmacy 43.8 ml/min; Est GFR (African American) 47.3; Est GFR (Non-African American) 40.8; Glucose 123 mg/dl (70-99); Potassium 3.7 mmol/L (3.5-5.1); Sodium 140 mmol/L (136-145)
[2019-04-02 01:33] LABS: Troponin I < 0.015 ng/ml (0-0.045)
[2019-04-02] MEDS: SODIUM CHLORIDE 0.9% 1000ML 1,000 ML IV SCH (03:26)
[2019-04-02] MEDS: INSULIN ASPART 100 UNITS/ML 3 ML PEN SC SCH ×2 (08:42→12:08)
[2019-04-02] MEDS: HEPARIN SOD 5,000 UNIT/0.5 ML VIAL SQ SCH (08:43)
[2019-04-02] MEDS: CARVEDILOL 6.25 MG TAB PO SCH (08:43)
[2019-04-02] MEDS: PANTOprazole 40 MG TAB PO SCH (08:44)
[2019-04-02] MEDS: AMLODIPINE BESYLATE 5 MG TAB PO SCH (08:44)
[2019-04-02] MEDS ORDERED: TERAZOSIN HCL 5 MG CAP PO SCH (09:00)
[2019-04-02] MEDS ORDERED: TRIAMTERENE/HCTZ 37.5/25MG TAB PO SCH (09:00)
[2019-04-02] MEDS ORDERED: DANDELION ROOT PO SCH (09:00)
[2019-04-02] MEDS ORDERED: ASPIRIN 81 MG ECTAB PO SCH (09:00)
[2019-04-02] MEDS ORDERED: MULTIVITAMIN TAB PO SCH (09:00)
[2019-04-02 09:50] LABS: iSTAT Creatinine 1.5 mg/dl (0.6-1.3); iSTAT Hemoglobin 12.6 g/dl (14.0-18.0); iSTAT Ionized Calcium 0.92 mmol/l (1.12-1.32); iSTAT Potassium 5.7 mEq/L (3.3-5.0)
--- NOTE | 2019-04-02 11:22 | Hospitalist Progress Note ---
Date of Service April 02, 2019 Assessment & Plan (1) Chest pain: Present on admission with midsternal/epigastric pain after eating Seems to be mostly GI related due to esophageal/reflux disease Troponin x3 negative EKG showed no ischemic changes ECHO showed mild concetric LVH, No wall motion abnormality with EF btw 65-70% No arrhythmia on tele monitor Will continue PPI Denies any chest pain currently (2) WILSON (acute kidney injury): Not sure about his baseline creatinine Creat on admission 1.6 Creatinine today 1.5 Received IVF Will resume ACEI and diuretic on discharge Check BMP in 1 week (3) Diabetes: Hba1c 7on 04/02/19 Metformin on hold for now Monitor BS (4) Hypertension: BP stable Continue amlodipine and Coreg Lisinopril and diuretics on hold DVT px on heparin subq CODE STATUS FULL CODE Disposition Will discharge home today Subjective Pt was seen and examined. Lying in bed with no distress . Pt said that he feels fine He said that he does not have chest discomfort since after the nitro subl Pt said that his pain started after eating some food and he vomited Pt is very anxious to go home today ( said that he does not have any patient) Denies any chest pain, palpitation, dizziness and SOB Physical Exam Physical Exam: General- No acute distress Head- atraumatic Eyes- PERRL, EOMI, ENT- oropharynx clear Neck- supple, no JVD Lungs- clear to auscultation Heart- regular rhythm; no murmur Abdomen- normal bowel sounds, soft, nontender Extremities- no calf tenderness Neuro- alert, oriented x 3; PERRL, EOMI; no facial palsy; no dysarthria Skin- warm & dry Results & Data Vital Signs (Past 12 Hours) Vital Signs Temp Pulse Pulse Resp BP BP Pulse Ox 04/02/19 07:49 36.4 C L 68 18 137/66 93 04/02/19 07:38 60 04/02/19 03:23 36.1 C L 63 19 135/77 99 04/01/19 23:58 36.7 C 68 19 122/68 97 (1) Chest pain Chest pain type: unspecified Qualified Code(s): R07.9 - Chest pain, unspecified
[2019-04-02 12:36] LABS: Estimated Average Glucose 154 mg/dl
--- NOTE | 2019-04-06 12:26 | Discharge Summary ---
Date of Service April 02, 2019 Admission HPI Per Admitting Provider He is an 83-year-old male with significant past medical history of hypertension, diabetes and heart disease without any history of heart attack and/or cardiac stent or bypass surgery in the past apparently has been complaining of sharp epigastric/lower central chest pain since around noon today. He has been visiting from [place] and this morning he has had a good breakfast and at lunch he ate something more started to have severe stabbing kind of pain in the epigastrium that went to the back and also central lower chest. It is associated with some shortness of breath. He has had an attack of acute pleurisy recently and received a course of prednisone from his primary care physician in [place]. He thinks WBC has not been cleared yet. His pain has been going on for more than 2 hours with a.m. minimal associated symptoms and the pain is to some extent relieved by sublingual nitro. He has been on most free of pain in the emergency room and noted to be hemodynamically stable. He had similar pain about 5 years back at that time he underwent a cardiac cath that was unremarkable and he was told that the pain is from esophagitis. Admission Exam Per Admitting Provider Physical Exam: No apparent distress at rest Constitutional: well developed and well nourished; no acute distress and not ill appearing Eyes: PERRL, conjunctivae normal, anicteric sclerae ENMT: external ear and nose normal, oropharynx normal Neck: trachea midline, no thyromegaly Respiratory: Complaint to have pleuritic chest pain. And the pain seems to be left lower thoracic area at the back Cardiovascular: regular rate and regular rhythm Heart Sounds: no murmur Gastrointestinal Inspection/Auscultation: abdomen normal to inspection and normal bowel sounds Musculoskeletal: No acute arthritis Neurologic: Alert awake and oriented x3, Lymphatic: no cervical or axillary lymphadenopathy Principal Diagnosis Chest pain Diabetes type 2 Esophageal reflux disease Hypertension Discharge Exam General- No acute distress Head- atraumatic Eyes- PERRL, EOMI, ENT- oropharynx clear Neck- supple, no JVD Lungs- clear to auscultation Heart- regular rhythm; no murmur Abdomen- normal bowel sounds, soft, nontender Extremities- no calf tenderness Neuro- alert, oriented x 3; PERRL, EOMI; no facial palsy; no dysarthria Skin- warm & dry Discharge Data Allergies Allergy/AdvReac Type Severity Reaction Status Date / Time No Known Allergies Allergy Unverified 04/01/19 14:13 Consultations 04/01/19 13:52 ED Decision to Admit Stat Ordered Studies XR chest 1V portable CLINICAL HISTORY: Atypical chest pain COMPARISON STUDY: 05/04/2017 FINDINGS: The heart is normal in size. There is no failure. There is no pneumothorax. The patient is hyperinflated. There is enlargement of the pulmonary arteries consistent with pulmonary arterial hypertension. There is basilar interstitial thickening.[There are old healed left-sided rib fractures IMPRESSION: 1. Emphysema 2. Pulmonary arterial hypertension 3. Basilar interstitial thickening 4. No evidence of lobar consolidation Electronically signed by: Diallo Dempsey M.D. 04/01/2019 1:37 PM Dictated: 04/01/19 1336 Transcribed: 04/01/19 1336 Hospital Course (1) Chest pain: Present on admission with midsternal/epigastric pain after eating Seems to be mostly GI related due to esophageal/reflux disease Troponin x3 negative EKG showed no ischemic changes ECHO showed mild concetric LVH, No wall motion abnormality with EF btw 65-70% No arrhythmia on tele monitor Will continue PPI Denies any chest pain currently (2) WILSON (acute kidney injury): Not sure about his baseline creatinine Creat on admission 1.6 Creatinine today 1.5 Received IVF Will resume ACEI and diuretic on discharge Check BMP in 1 week (3) Diabetes: Hba1c 7on 04/02/19 Metformin on hold for now Monitor BS (4) Hypertension: BP stable Continue amlodipine and Coreg Lisinopril and diuretics on hold DVT px on heparin subq CODE STATUS FULL CODE Disposition Will discharge home today Total Time Total Time Spent Total Time Spent (In Minutes): 35 minutes Total Time Includes: Examination of the Patient, Discharge Planning, Medication Reconciliation, Communication With Other Providers and Other Discharge Plan Discharge Items Patient Disposition: Home - Self-Care Reason For Visit: CHEST PAIN Discharge Diagnosis: Chest pain Diabetes type 2 Esophageal reflux disease Hypertension Discharge Goals: Decrease discomfort, Improve disease control, Improve function and Increase independence Activity: Resume your previous activity Activity Comment: as tolerated Non-emergency contact: Primary Care Provider Call non-emergency contact if: you have any medication questions Follow-up/Referrals: Silviano Vigil MD [Primary Care Provider] - Diet: Carb Consistent or DM2 and Heart Healthy Addtl Provider Instructions: Please call to schedule follow up appointment with your primary care provider Fall precaution Check BMP in 1-2 weeks Keep yourself hydrate while attending the [facility] Monitor your blood sugar and bring your blood sugar log at your next appointment with your physician Hold metformin for now due to elevate in your kidney marker Hold water pill (triamterene-hydrochlorothiazide) due to elevate in your kidney marker Continue monitor your blood pressure Prescriptions: New pantoprazole 40 mg Tablet,Delayed Release (Dr/Ec) 40 mg PO QAM 30 Days Qty: 30 RF: 0 nitroglycerin [Nitrostat] 0.4 mg Tablet, Sublingual 0.4 mg sublingual PRN PRN (Reason: chest pain) Qty: 30 RF: 0 Continued multivitamin Tablet 1 tab PO DAILY RF: 0 losartan 50 mg tablet 50 mg PO BID RF: 0 terazosin 5 mg capsule 5 mg PO DAILY RF: 0 metformin 500 mg tablet 500 mg PO BID RF: 0 carvedilol 6.25 mg tablet 6.25 mg PO UNKNOWN RF: 0 amlodipine 5 mg tablet 5 mg PO DAILY RF: 0 aspirin [Aspirin Low Dose] 81 mg Tablet,Delayed Release (Dr/Ec) 81 mg PO DAILY RF: 0 citalopram 20 mg tablet 20 mg PO DAILY RF: 0 triamterene-hydrochlorothiazid 37.5-25 mg tablet 1 tab PO DAILY RF: 0 cyanocobalamin (vitamin B-12) 1,000 mcg/mL Kit IM MONTHLY RF: 0 Dandelion Root 1,260 mg 1,260 mg PO DAILY RF: 0 Stand-Alone Forms: [facility]/Other Patient Handouts: Pantoprazole Sodium Gastro-resistant tablet, Nitroglycerin Sublingual tablet Discharge Orders: Discharge Order (Routine); Ordered 04/02/19 Ordered By: Leon Ramsey Admission Data Admit Date/Time: 04/01/19 14:38 Attending Provider: Leon Ramsey Admit Provider: Katelyn Thakkar Primary Care Provider: Silviano Vigil Other Providers: Richard Reyes ; Silviano Vigil ; Katelyn Thakkar Service: Telemetry Other Interventions: Discharge Summary Assessment (RN) Last Done: 04/02/19 16:06 DC Date/Time DO NOT enter until pt leaves facility: 04/02/19 17:24
== END 2019-04-02 17:24 | disposition home or self-care (01) ==
LOC: 2S 12:33 → ED 12:33 → 2S 16:32